=== PATIENT | female | born 2000 | race Two or more races ===

== ENCOUNTER 2020-05-27 13:40 | Inpatient (IN) | payer OTHER, MEDICAID ==
[~2020-05-27] VITALS: Ht 157.5 cm; Wt 78.0 kg
[2020-05-27] MEDS ORDERED: PREN-96 PO (15:51)
[2020-05-27] MEDS ORDERED: DERMOPLAST 60ML BOTTLE TOP PRN (16:00)
[2020-05-27] MEDS ORDERED: PHISODERM TOP SOLN 240ML BTL TOP PRN (16:00)
[2020-05-27] MEDS ORDERED: LIDOCAINE 2%HCL (LOCAL ANESTH.) INJ 20ML MDV IJ ONE (16:00)
[2020-05-27] MEDS ORDERED: PENICILLIN G POT 5MIL/D5 50ML 50 ML IV ONE (16:00)
[2020-05-27] MEDS ORDERED: WITCH HAZEL-GLYCERIN PAD TOP PRN (16:00)
[2020-05-27] MEDS: LACTATED RINGER'S 1,000 ML IV SCH (16:11)
[2020-05-27] MEDS ORDERED: OXYTOCIN 20 UNT in SODIUM CHLORIDE 0.9% 1,000 ML IV ONE (16:15)
[2020-05-27] MEDS ORDERED: miSOPROStol 100 mcg TAB PR ONE (16:30)
[2020-05-27] MEDS ORDERED: CARBOPROST TROMETHAMINE 250 MCG/1ML VIAL IM PRN (16:30)
[2020-05-27] MEDS ORDERED: METHYLERGONOVINE MALEATE 0.2 MG/ML AMP IM PRN (16:30)
[2020-05-27] MEDS ORDERED: miSOPROStol 100 mcg TAB SL ONE (16:30)
[2020-05-27] MEDS ORDERED: LACT. RINGERS/OXYTOCIN 20UNITS 1,000 ML IV SCH (16:45)
[2020-05-27 17:08] LABS: Basophils # (auto) 0.1 10 ^3/uL (0-0.2); Basophils % (auto) 0.6 % (0.0-2.0); Eosinophils # (auto) 0 10 ^3/uL (0-0.8); Eosinophils % (auto) 0.3 % (0.0-7.0); Hematocrit 36.4 % (36.0-46.0); Lymphocytes # (auto) 1.4 10 ^3/uL (0.4-5.4); Mean Corpuscular Hemoglobin 28.9 pg (28.0-32.0); Mean Corpuscular Hgb Conc. 33.1 g/dL (32.0-36.0); Mean Corpuscular Volume 87.6 fL (80.0-100.0); Monocytes # (auto) 0.8 10 ^3/uL (0-1.3); Monocytes % (auto) 5.9 % (0.0-12.0); Neutrophils # (auto) 10.5 10 ^3/uL (1.6-8.6); Neutrophils % (auto) 82.2 % (37.0-80.0); Nucleated Red Blood Cells % 0.1 %; Platelet Count (auto) 386 10^3/uL (140-450); Red Blood Cells 4.15 10^6/uL (4.0-5.20); Red Cell Distribution Width 15.9 % (11.8-14.3); White Blood Cell 12.8 10^3/uL (4.4-10.8)
[2020-05-27 17:23] LABS: Albumin 3.1 g/dL (3.4-5.0); Calcium 9.1 mg/dL (8.5-10.1)
[2020-05-27 17:25] LABS: INR 0.93 (0.9-1.15); Partial Thromboplastin Time 23.9 sec (23.0-31.2)
[2020-05-27 17:28] LABS: BUN/Creatinine Ratio 8.5; Bilirubin, Total 0.5 mg/dL (0.2-1.0); Total Protein 7.4 g/dL (6.4-8.2); Uric Acid 4.8 mg/dL (2.6-6.0)
[2020-05-27 18:09] LABS: Urine Bacteria FEW /hpf (None Seen); Urine Blood 3+ /uL (Negative); Urine Mucus FEW (None Seen); Urine Specific Gravity 1.019 (1.001-1.035); Urine WBC 82 /hpf (0 - 5)
[2020-05-27 18:16] LABS: Alcohol, Urine < 3.0 mg/dL (0-10); Amphetamine Screen, Urine NEGATIVE (NEGATIVE); Barbiturate Scree,Urine NEGATIVE (NEGATIVE); Benzodiazephine Screen, Urine NEGATIVE (NEGATIVE); Cannabinoid Screen, Urine NEGATIVE (NEGATIVE); Cocaine Screen, Urine NEGATIVE (NEGATIVE); Creatinine, Urine 132 mg/dL (30.0-125.0); Opiate Scree,Urine NEGATIVE (NEGATIVE); Phencyclidine Screen, Urine NEGATIVE (NEGATIVE)
[2020-05-27] MEDS ORDERED: PENICILLIN G POTASSIUM 2,500,000 UNITS in D5W 5% 50 ML IV SCH (20:00)
[2020-05-28] VITALS (17 sets, daily range): BP systolic 109–155; BP diastolic 56–95
[2020-05-28] MEDS ORDERED: SUCCINYLCHOLINE CHLORIDE 20 MG/ML 10ML VIAL IV ONE (00:25)
[2020-05-28] MEDS ORDERED: PROPOFOL 10 MG/ML 20 ML IV ONE (00:27)
[2020-05-28] MEDS ORDERED: oxyTOCIN 10 UNIT/ML 10ML VIAL ONE (00:28)
[2020-05-28] MEDS ORDERED: LIDOCAINE 2% (LOCAL ANESTH.) PF 5ml SDV ONE (00:28)
[2020-05-28] MEDS ORDERED: ceFAZolin 1GM VL ONE ×2 (00:28→00:51)
[2020-05-28] MEDS ORDERED: DexAMETHasone SOD PHOS 10MG/1ML VIAL INJ ONE (00:28)
[2020-05-28] MEDS ORDERED: fentaNYL CITRATE 100 MCG/2 ML VL ONE (00:29)
[2020-05-28] MEDS ORDERED: ONDANSETRON HCL 4 MG/2 ML VIAL ONE (00:56)
[2020-05-28] MEDS ORDERED: CARBOPROST TROMETHAMINE 250 MCG/1ML VIAL IM ONE (01:03)
[2020-05-28] MEDS ORDERED: ONDANSETRON HCL 4 MG/2 ML VIAL IV PRN (01:30)
[2020-05-28] MEDS ORDERED: LACT. RINGERS/OXYTOCIN 20UNITS 1,000 ML IV ONE (01:30)
[2020-05-28] MEDS ORDERED: MORPHINE SULFATE 4 MG/ML SYR/VIAL IV PRN (01:30)
[2020-05-28] MEDS ORDERED: HYDROmorphone HCL 2 MG/ML VL ONE (01:39)
[2020-05-28] MEDS ORDERED: HYDROmorphone HCL 2 MG/ML VL IV PRN (01:45)
[2020-05-28] MEDS ORDERED: METOCLOPRAMIDE HCL 5MG/ml INJ 2ml VIAL IV PRN (01:45)
[2020-05-28] MEDS ORDERED: LABETALOL HCL 5 MG/ML 4ML SYRINGE IV PRN (01:45)
[2020-05-28] MEDS: HYDROmorphone HCL 2 MG/ML VL IV PRN ×2 (01:50→02:00)
--- NOTE | 2020-05-28 02:25 | NUR ---
Post Op for LDRP: Received patient from PACU via bed to room 8B. Patient A/A/Ox4, abdominal binder and bilateral SCD's are in place, IV fluids placed on pump and infusing per order, incisional site dressing clean/dry/intact and Spencer Catheter to gravity draining clear yellow urine. Fundus firm at umbilicus. Incentive Spirometer at bedside and instruction on proper use with return demonstration done by patient.
[2020-05-28] MEDS ORDERED: ceFAZolin 1GM/50ML 50 ML IV SCH (06:00)
[2020-05-28] MEDS ORDERED: ACETAMINOPHEN IV 1000 MG/100ML (10MG/ML) IV ONE (07:30)
[2020-05-28] MEDS: LACTATED RINGER'S 1,000 ML IV SCH ×2 (08:00→23:03)
[2020-05-28] MEDS: MORPHINE SULF INJ 2 MG/ML SYRINGE 1ML IV PRN ×2 (09:01→12:42)
[2020-05-28] MEDS: ceFAZolin 1GM/50ML 50 ML IV SCH ×3 (09:07→22:44)
--- NOTE | 2020-05-28 09:15 | NUR ---
DR. AARON IN PATIENTS ROOM AND AWARE OF HEART RATE 116, 120 , AND VISUALIZED HERSELF VITALS. NEW ORDERS RECEIVED DO A CBC , AND GIVE 500 ML BOLUS AFTER MEDICATION ANCEF IS FINISHED.
[2020-05-28] MEDS ORDERED: LACTATED RINGER'S 500 ML IV ONE (09:30)
[2020-05-28 09:57] LABS: Basophils # (auto) 0 10 ^3/uL (0-0.2); Basophils % (auto) 0.1 % (0.0-2.0); Eosinophils # (auto) 0 10 ^3/uL (0-0.8); Hematocrit 29.6 % (36.0-46.0); Hemoglobin 9.9 g/dL (12.2-16.2); Lymphocytes # (auto) 1.3 10 ^3/uL (0.4-5.4); Mean Corpuscular Hemoglobin 29.2 pg (28.0-32.0); Mean Corpuscular Hgb Conc. 33.4 g/dL (32.0-36.0); Mean Corpuscular Volume 87.4 fL (80.0-100.0); Monocytes # (auto) 1.4 10 ^3/uL (0-1.3); Monocytes % (auto) 7.5 % (0.0-12.0); Neutrophils # (auto) 16.3 10 ^3/uL (1.6-8.6); Neutrophils % (auto) 85.4 % (37.0-80.0); Platelet Count (auto) 376 10^3/uL (140-450); Red Blood Cells 3.38 10^6/uL (4.0-5.20)
--- NOTE | 2020-05-28 13:30 | NUR ---
CALLED DR. AARON WITH CBC RESULTS AND READ RESULTS TO HER .
--- NOTE | 2020-05-28 16:20 | NUR ---
DR. AARON CALLED UNIT AND UPDATE GIVEN . PATIENT PASSING GAS READ HEART RATE 116, 100, 112, 113. PER DR. AARON OK D/C ARTEAGA AND PUT 1ST DAY POST OP ORDERS IN . Arteaga catheter dc'd Order to discontinue arteaga catheter. Arteaga dc'd with clean technique following deflation of balloon. Patient tolerated well with no complaints of pain. Continue care.
[2020-05-28] MEDS ORDERED: HYDROcodone-ACET 5/325MG TAB PO PRN (16:30)
[2020-05-28] MEDS ORDERED: BISACODYL 10 MG RECT SUPP PR PRN (16:30)
[2020-05-28] MEDS: HYDROcodone-ACET 5/325MG TAB PO PRN (16:45)
[2020-05-28] MEDS: FERROUS SULFATE 325 MG TAB PO SCH (17:42)
[2020-05-28] MEDS: SIMETHICONE 80 MG CHEWABLE TABLET PO SCH ×2 (17:42→21:48)
--- NOTE | 2020-05-28 17:45 | NUR ---
Ambulation: Patient OOB with standby assistance by RN. Patient ambulated to bathroom with steady gait. [facility] teaching provided with returned demonstration by patient. Clean gown provided and bed linen changed. Patient ambulated back to bed with steady gait and no distress noted.
--- NOTE | 2020-05-28 18:50 | NUR ---
DR. AARON IN NURSING STATION AND MADE AWARE PATIENT HEART RATE IS 125 BPM , PAIN MEDICATION GIVEN AND PATIENT VITAL STABLE AND WITH IN NORMAL LIMITS . PER DR. AARON GET A HOSPITAL CONSULT FOR TACHYCARDIA.
[2020-05-28 20:20] LABS: Basophils # (auto) 0.1 10 ^3/uL (0-0.2); Basophils % (auto) 0.7 % (0.0-2.0); Eosinophils # (auto) 0 10 ^3/uL (0-0.8); Eosinophils % (auto) 0.2 % (0.0-7.0); Hematocrit 27.2 % (36.0-46.0); Hemoglobin 9.1 g/dL (12.2-16.2); Mean Corpuscular Hemoglobin 29.2 pg (28.0-32.0); Mean Corpuscular Hgb Conc. 33.5 g/dL (32.0-36.0); Mean Corpuscular Volume 87.3 fL (80.0-100.0); Monocytes # (auto) 1.6 10 ^3/uL (0-1.3); Monocytes % (auto) 9.4 % (0.0-12.0); Neutrophils # (auto) 12.9 10 ^3/uL (1.6-8.6); Neutrophils % (auto) 77.7 % (37.0-80.0); Platelet Count (auto) 338 10^3/uL (140-450); Red Blood Cells 3.11 10^6/uL (4.0-5.20); Red Cell Distribution Width 16.1 % (11.8-14.3); White Blood Cell 16.6 10^3/uL (4.4-10.8)
[2020-05-28] MEDS: DOCUSATE CALCIUM 240 MG CAP PO SCH (21:48)
[2020-05-28] MEDS: IBUPROFEN 800 MG TAB PO PRN (21:48)
[2020-05-28] MEDS ORDERED: DOCUSATE SOD 100 MG CAP PO SCH (22:00)
[2020-05-29] MEDS: HYDROcodone-ACET 5/325MG TAB PO PRN ×3 (00:27→16:01)
[2020-05-29 03:00] VITALS: BP 118/61
[2020-05-29] MEDS: SIMETHICONE 80 MG CHEWABLE TABLET PO SCH ×4 (05:02→21:48)
[2020-05-29] MEDS: IBUPROFEN 800 MG TAB PO PRN ×3 (05:03→21:48)
[2020-05-29 06:45] VITALS: BP 112/66
[2020-05-29] MEDS: ceFAZolin 1GM/50ML 50 ML IV SCH ×3 (06:56→21:48)
[2020-05-29 06:58] LABS: Basophils # (auto) 0.1 10 ^3/uL (0-0.2); Basophils % (auto) 0.9 % (0.0-2.0); Eosinophils # (auto) 0.2 10 ^3/uL (0-0.8); Eosinophils % (auto) 1.1 % (0.0-7.0); Hematocrit 26.2 % (36.0-46.0); Hemoglobin 8.6 g/dL (12.2-16.2); Lymphocytes # (auto) 3.1 10 ^3/uL (0.4-5.4); Lymphocytes % (auto) 21.3 % (10.0-50.0); Mean Corpuscular Hemoglobin 28.9 pg (28.0-32.0); Mean Corpuscular Hgb Conc. 32.6 g/dL (32.0-36.0); Mean Corpuscular Volume 88.5 fL (80.0-100.0); Monocytes % (auto) 6.6 % (0.0-12.0); Neutrophils # (auto) 10.3 10 ^3/uL (1.6-8.6); Neutrophils % (auto) 70.1 % (37.0-80.0); Nucleated Red Blood Cells % 0.1 %; Platelet Count (auto) 304 10^3/uL (140-450); Red Blood Cells 2.96 10^6/uL (4.0-5.20); Red Cell Distribution Width 16.5 % (11.8-14.3); White Blood Cell 14.8 10^3/uL (4.4-10.8)
--- NOTE | 2020-05-29 07:00 | NUR ---
Lower abdominal incision clean, dry and well approximated wtih 16 vlad pressent and intact. Site left open to air. Addendum: 05/29/20 at 1117 by Alethea Sahni RN Amended: Links added.
[2020-05-29] MEDS: DOCUSATE CALCIUM 240 MG CAP PO SCH (10:56)
[2020-05-29] MEDS: FERROUS SULFATE 325 MG TAB PO SCH ×2 (10:57→18:29)
[2020-05-29 10:59] VITALS: BP 110/61
[2020-05-29 15:30] VITALS: BP 117/63
[2020-05-29 19:30] VITALS: BP 107/68
[2020-05-29 23:00] VITALS: BP 133/81
[2020-05-30 04:09] VITALS: BP 115/70
[2020-05-30] MEDS: HYDROcodone-ACET 5/325MG TAB PO PRN ×3 (04:22→22:16)
[2020-05-30 05:06] LABS: RPR Non Reactive (Non Reactive)
[2020-05-30 06:06] LABS: Rubella Antibodies, IgG 6.02 index (Immune >0.99)
[2020-05-30 06:30] VITALS: BP 107/64
[2020-05-30] MEDS: SIMETHICONE 80 MG CHEWABLE TABLET PO SCH ×3 (06:33→17:58)
[2020-05-30] MEDS: ceFAZolin 1GM/50ML 50 ML IV SCH ×2 (06:33→13:39)
[2020-05-30] MEDS: FERROUS SULFATE 325 MG TAB PO SCH ×3 (08:00→18:20)
[2020-05-30] MEDS: LACTATED RINGER'S 1,000 ML IV SCH (08:30)
[2020-05-30] MEDS: DOCUSATE CALCIUM 240 MG CAP PO SCH (10:03)
[2020-05-30] MEDS: IBUPROFEN 800 MG TAB PO PRN ×2 (10:03→18:01)
[2020-05-30 10:30] VITALS: BP 116/75
[2020-05-30 15:00] VITALS: BP 103/57
[2020-05-30 18:30] VITALS: BP 119/64
[2020-05-30 23:00] VITALS: BP 121/67
--- NOTE | 2020-05-31 00:10 | NUR ---
IV removal 20g IV to right hand DC'd with clean sterile technique, catheter fully intact. Pressure dressing applied to site. Patient tolerated well.
--- NOTE | 2020-05-31 00:15 | NUR ---
Discharge: Discharge instructions given as ordered. Pt encouraged to follow up with [facility] as instructed. All questions and concerns addressed. Patient verbalized understanding. Medication reconciliation completed and copy given to patient. All required/requested vaccines given and copies of vaccinations given to patient. Patient encouraged to prepare to depart unit.
--- NOTE | 2020-05-31 00:45 | NUR ---
Discharge: Patient taken to vehicle via wheelchair with all personal belongings, accompanied by staff and family member. No distress noted at time of departure, no adverse changes in status since initial assessment.
== END 2020-05-31 00:45 | disposition home or self-care (01) | DRG 540 ==
LOC: LDRP 13:40 → OBSVTOIN 15:38 → LDRP 05-28 10:47
PROVIDERS: ADMIT Obstetrics & Gynecology; ATTEND Obstetrics & Gynecology
PROC: 10D00Z1 Extraction of Products of Conception, Low, Open Approach (ICD-10-PCS; principal; 2020-05-28 00:29)
DX: O66.5 Attempted application of vacuum extractor and forceps (principal); Z37.0 Single live birth; Z3A.41 41 weeks gestation of pregnancy
CPT/HCPCS: 36415; 59025; 76818; 80053; 80307; 81001; 81002; 82570; 84550; 85025; 85610; 85730; 86592; 86703; 86762; 86850; 86900; 86901; 87340; 94760; 96360; 96361; 96374; G0378; J0131; J0330; J0690; J1100; J2001; J2405; J2540; J2590; J2704; J7060